=== PATIENT | female | born 2005 | race Caucasian/White ===

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

== ENCOUNTER 2023-01-11 13:58 | Emergency (ER) | payer OTHER ==
[~2023-01-11] VITALS: Ht 152.4 cm; Wt 12.1 kg
[2023-01-11] MEDS ORDERED: CLARITIN LIQUI-10 MG PO (14:48)
[2023-01-11] MEDS ORDERED: CEFDINIR300 MG PO (15:05)
[2023-01-11 15:17] VITALS: BP 156/87
== END 2023-01-11 15:20 | disposition home or self-care (01) ==
LOC: ED 13:58
DX: H66.91 Otitis media, unspecified, right ear (principal)

== ENCOUNTER → 2024-01-17 | Outpatient (REF) | payer OTHER ==
[~2024-01-17] MED LIST changes: +CEFDINIR300 MG PO; +CLARITIN LIQUI-10 MG PO; +CLINDAMYCIN 300MG PO; +POLYTRIM 1000010 ML OS
== END ==
LOC: LAB 15:21
DX: Z72.51 High risk heterosexual behavior (principal)